=== PATIENT | male | born 1950 | race African-American/Black ===

== ENCOUNTER 2022-03-22 13:47 | Emergency (ER) | payer OTHER ==
[~2022-03-22] VITALS: Ht 172.7 cm; Wt 104.3 kg
[~2022-03-22 13:47] MED LIST: ASPIRIN EC81 MG PO; COZAAR100 MG PO; CYCLOBENZAPRINE10 MG PO; GLUCOPHAGE1000 MG PO; GLUCOTROL10 MG PO; LIDOCAINE 5% P1 EACH TOP; LIPITOR20 MG PO; LOPID600 MG PO; NORCO 5-325 TA1 EACH PO; NORVASC 10MG TA10 MG PO; TENORMIN50 MG PO; TRULICITY1.5 MG/0.5 SC; VOLTAREN **OUT50 MG PO
[2022-03-22 14:44] LABS: BASOPHIL 0.2 % (0-2); EOSINOPHIL 2.4 % (0-7); HCT 40.9 % (42.0-52.0); HGB 12.7 g/dl (13.2-18.0); LYMPHOCYTE 2.5 % (15-48); MCH 28.6 pg (25.0-31.0); MCHC 31.1 g/dL (32.0-36.0); MCV 92.1 fL (78.0-100.0); MONOCYTE 3.7 % (0-12); MPV 11.1 fL (6.0-9.5); NEUTROPHIL 90.6 % (41-80); NRBC 0; PLT 316 K/uL (150-400); RBC 4.44 M/uL (4.70-6.00); RDW 14.1 % (11.5-14.0); WBC 14.5 K/uL (4.0-10.5)
[2022-03-22 14:49] LABS: INR 1.08 (0.9-1.2); PROTHROMBIN TIME 13.4 SECONDS (11.8-13.4); PTT 30.5 SECONDS (24.4-34.7)
[2022-03-22 15:05] LABS: ALBUMIN 3.6 g/dL (3.4-5.0); BILIRUBIN - TOTAL 0.6 mg/dL (0.2-1.0); CREATININE 0.89 mg/dL (0.67-1.17); GLOBULIN (CALCULATION) 3.4 g/dL
== END 2022-03-22 19:20 | disposition other institution (70) ==
LOC: FER 13:47
PROVIDERS: Emergency Medicine
DX: I21.4 Non-ST elevation (NSTEMI) myocardial infarction (principal); E11.9 Type 2 diabetes mellitus without complications; F17.210 Nicotine dependence, cigarettes, uncomplicated; Z20.822 Contact with and (suspected) exposure to COVID-19
CPT/HCPCS: 36415; 71046; 80053; 82553; 84484; 85025; 85379; 85610; 85730; 93005; J1650; U0002